=== PATIENT | female | born 1985 | race Caucasian/White ===

== ENCOUNTER 2021-07-04 14:27 | Emergency (ER) | payer OTHER, SELFPAY ==
[2021-07-04 14:37] VITALS: BP 101/86; PULSE 85; RESP 16; TEMP 36.9; O2SAT 100
--- NOTE | 2021-07-04 14:41 | ED.EAR ---
HPI - Ear Problem General Chief complaint: Ear Stated complaint: ear pain Time Seen by Provider: 07/04/21 14:48 Source: patient and RN notes reviewed Mode of arrival: ambulatory Limitations: no limitations History of Present Illness HPI Narrative: 35-year-old female presents with concern for change okay sorry cannot travel that far ear pain. Report was worsening ear pain on the left. Reports she has been taking [id number] medications with no relief. Reports she started having drainage from the ear yesterday. MD Complaint: ear pain Related Data Home Medications Medication Instructions Recorded Confirmed Depo-Provera Contraceptive 07/04/21 Allergies Allergy/AdvReac Type Severity Reaction Status Date / Time mustard Allergy Unknown Unknown Verified 01/03/19 18:15 Review of Systems Review of Systems: CONSTITUTIONAL: Denies malaise, chills, sweats, or fever. EYES: Denies visual changes, redness, or discharge. ENT: Reports rhinorrhea, congestion, left ear pain. Denies sinus pain and sore throat. CARDIOVASCULAR: Denies chest pain, palpitations, or edema. RESPIRATORY: Denies cough. Denies dyspnea. GASTROINTESTINAL: Denies abdominal pain, nausea, vomiting, diarrhea SKIN: Denies rash or itching. MUSCULOSKELETAL: Denies myalgia. NEUROLOGIC: Denies headache. All systems reviewed & are unremarkable except as noted in HPI and below PMFSH Comments At time of signature, agree with nursing past medical, surgical, social and family history. There is no relevant family history pertinent to the presenting complaint Exam Narrative: GENERAL: Well-appearing, well-nourished, and in no acute distress. HEAD: Normocephalic EYES: PERRLA, conjunctivae clear ENT: Nares clear, turbinates edematous, clear discharge. Mucous membranes moist. Right did go to TM pearly ruffin with dull light reflex left TM ruptured with purulent drainage; no tragal tenderness. Oropharynx not erythematous without lesions. Tonsils not enlarged and without exudate, no drooling, no hoarseness, no trismus, uvula midline. NECK: Supple. No lymphadenopathy CHEST: Clear to auscultation, breath sounds equal. No wheezing, rhonchi, rales, or stridor. No respiratory distress, speaks in full sentences. HEART: Regular rate and rhythm. No murmur heard. SKIN: Warm, dry, no rash. NEURO: Alert and oriented x3. PSYCH: Normal mood and affect Course Course Emergency Course: Patient is aware of diagnosis, understands and agrees to treatment plan. Anticipatory guidance given. Patient agrees to follow-up as directed and is aware of reasons to seek care at the emergency department. Portions of this record may have been created with voice recognition software Level of Care: Express Care Visit Vital Signs Vital signs: Vital Signs Temperature 98.4 F 07/04/21 14:37 Pulse Rate 85 07/04/21 14:37 Respiratory Rate 16 07/04/21 14:37 Blood Pressure 101/86 07/04/21 14:37 Pulse Oximetry 100 07/04/21 14:37 Temperature 98.4 F 07/04/21 14:37 Pulse Rate 85 07/04/21 14:37 Respiratory Rate 07/04/21 14:37 Blood Pressure 101/86 07/04/21 14:37 Pulse Oximetry 100 07/04/21 14:37 Reviewed. Medical Decision Making MDM Narrative Medical decision making narrative: Differential diagnosis considered: [place] virus, strep pharyngitis, allergic rhinitis, upper respiratory tract infection, sinusitis, rhinosinusitis, nasopharyngitis. viral pharyngitis, otitis media, otitis externa, otitis effusion, cerumen impaction, foreign body. Exam findings show no acute concerns or changes; patient is non-toxic appearing and is in no distress. Patient is appropriate for outpatient treatment and follow-up. Vital Signs Vital Signs: Vital Signs Temperature 98.4 F 07/04/21 14:37 Pulse Rate 85 07/04/21 14:37 Respiratory Rate 07/04/21 14:37 Blood Pressure 101/86 07/04/21 14:37 Pulse Oximetry 100 07/04/21 14:37 Temperature 98.4 F 07/04/21 14:37 Pulse
== END 2021-07-04 15:05 | disposition home or self-care (01) ==
PROVIDERS: Emergency Provider Nurse Practitioner
DX: H66.012 Acute suppurative otitis media with spontaneous rupture of ear drum, left ear (principal)
CPT/HCPCS: 99213; G0463

== ENCOUNTER 2021-12-07 14:51 | Emergency (ER) | payer OTHER, SELFPAY ==
[2021-12-07 15:00] VITALS: BP 112/67; PULSE 74; RESP 16; TEMP 36.4; O2SAT 98
--- NOTE | 2021-12-07 15:10 | ED.FEMALEGU ---
HPI - Female Genitourinary General Chief complaint: Urogenital-Female Stated complaint: UTI Time Seen by Provider: 12/07/21 15:11 Source: patient, RN notes reviewed and old records reviewed Mode of arrival: ambulatory Limitations: no limitations History of Present Illness HPI Narrative: 36-year-old female presents to the [facility] with complaints of urinary symptoms. Patient reports burning with urination and painful urination for the last 3 days. Patient denies nausea vomiting or diarrhea. Denies abdominal pain or chest pain. No CVA tenderness. Related Data Home Medications Medication Instructions Recorded Confirmed Depo-Provera Contraceptive 07/04/21 Allergies Allergy/AdvReac Type Severity Reaction Status Date / Time mustard Allergy Unknown Unknown Verified 12/07/21 15:04 Review of Systems Review of Systems: All systems reviewed & are unremarkable except as noted in HPI and below Constitutional: Constitutional: Reports no additional constitutional complaints, Denies chills and Denies fatigue Eyes: Eyes: Reports no additional eye complaints ENT: Reports system reviewed and no additional complaints, except as documented Cardiovascular: Cardiovascular: Reports no additional cardiovascular complaints Respiratory: Respiratory: Reports no additional respiratory complaints Gastrointestinal: Gastrointestinal: Reports no additional gastrointestinal complaints, Denies abdominal pain, Denies diarrhea, Denies nausea and Denies vomiting Genitourinary: Genitourinary: Reports as per HPI, Reports hematuria, Reports dysuria, Denies flank pain and Denies vaginal discharge Musculoskeletal: Musculoskeletal: Reports no additional musculoskeletal complaints and Denies back pain Integumentary/Breasts: Skin/Breast: Reports system reviewed and no additional complaints, except as docu Neurologic: Reports system reviewed and no additional complaints, except as documented Psychiatric: Psychiatric: Reports no additional psychiatric complaints Endocrine: Endocrine: Denies fatigue Allergic/Immunologic: Allergic/Immunologic: Reports no additional allergic/immunologic complaints [facility] Past Medical History Medical History (Updated 12/07/21 @ 19:46 by Kasia Acuna APRN) Patient denies medical problems Surgical History Surgical History (Updated 12/07/21 @ 19:45 by Kasia Acuna APRN) No pertinent past surgical history Social History Social History (Updated 12/07/21 @ 19:46 by Kasia Acuna APRN) Gender identity (if verbalized by the patient): Female Comments At the time of my signature, I reviewed and agree with the nursing past medical, surgical, social, and family history. There is no relevant family history pertinent to the patient complaint. Exam Const: General: healthy appearing, no acute distress and alert Nutritional Appearance: well nourished Orientation/consciousness: patient oriented x3 Limitations: no limitations HENMT: Head: normal to inspection Ears: external ears normal Eyes: Conjunctivae: conjunctivae normal Pupils: Equal, round and reactive pupils present Neck: Neck: normal visual inspection, no lymphadenopathy and no meningeal signs Chest: Chest palpation & inspection: normal inspection of the chest and abnormal inspection of the chest Resp: Effort & Inspection: normal respiratory effort Auscultation: clear to auscultation bilaterally Cardio: Rate: regular rate Rhythm: regular rhythm GI: GI Palp: Yes Soft to palpation and No Tenderness to palpation present (GI) : General: Yes no CVA tenderness Back/Spine/Pelvis: Back: no CVA tenderness Skin: General skin exam: normal color Rashes: no rashes Wounds: no wounds Neuro: General: patient oriented x3, moves all extremities, no meningeal signs and no focal motor deficits Cranial nerves: Yes Equal, round and reactive pupils present Speech: normal speech Gait exam (Neuro): Normal gait present Extrem: General: normal to ins
== END 2021-12-07 15:30 | disposition home or self-care (01) ==
PROVIDERS: Emergency Provider Nurse Practitioner
DX: N39.0 Urinary tract infection, site not specified (principal)
CPT/HCPCS: 81003; 87086; 99213; G0463

== ENCOUNTER 2022-06-26 00:29 | Emergency (ER) | payer OTHER, SELFPAY ==
[2022-06-26 00:36] VITALS: BP 108/63; PULSE 85; RESP 18; TEMP 36.6; O2SAT 96
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
[2022-06-26] MEDS: ACETAMINOPHEN 500 MG TABLET 1000 MG PO (01:20)
[2022-06-26] MEDS: IBUPROFEN 400 MG TABLET 800 MG PO (01:20)
--- NOTE | 2022-06-26 01:30 | PC.NURSE ---
Patient did not want her legs wrapped at this time, due to going home to change into her pajamas. Patient sent with [employer] to wrap her legs once she arrives home and changes her clothes. Patient stated understanding.
== END 2022-06-26 01:31 | disposition home or self-care (01) ==
PROVIDERS: Emergency Provider Emergency Medicine
DX: T24.232A Burn of second degree of left lower leg, initial encounter (principal); T24.231A Burn of second degree of right lower leg, initial encounter; T31.0 Burns involving less than 10% of body surface; X16.XXXA Contact with hot heating appliances, radiators and pipes, initial encounter
CPT/HCPCS: 99283; A9270